=== PATIENT | male | born 1955 | race Caucasian/White ===

== ENCOUNTER 2016-10-23 09:06 | Emergency (ER) | payer OTHER, BC ==
[~2016-10-23] VITALS: Ht 185.4 cm; Wt 108.9 kg
[2016-10-23 09:07] VITALS: BP 157/96
[2016-10-23] MEDS ORDERED: ONGL1TAB9 PO (09:27)
[2016-10-23] MEDS ORDERED: LISI10TA4 PO (09:27)
[2016-10-23] MEDS ORDERED: FARXIGA PO (09:27)
[2016-10-23] MEDS ORDERED: METF500T4 PO (09:27)
[2016-10-23] MEDS ORDERED: GLIM2TAB PO (09:27)
[2016-10-23] MEDS ORDERED: SIMV20TA2 PO (09:27)
[2016-10-23] MEDS ORDERED: NAPR500T PO (09:44)
[2016-10-23] MEDS ORDERED: CYCL10TA PO (09:44)
== END 2016-10-23 10:09 | disposition home or self-care (01) ==
LOC: M ED 09:52
DX: S39.012A Strain of muscle, fascia and tendon of lower back, initial encounter (principal); X50.9XXA Other and unspecified overexertion or strenuous movements or postures, initial encounter; Y92.9 Unspecified place or not applicable; Y93.89 Activity, other specified; Y99.9 Unspecified external cause status; Z79.899 Other long term (current) drug therapy

== ENCOUNTER 2017-05-03 07:49 | Outpatient (CLI) | payer BC ==
[~2017-05-03] VITALS: Ht 182.9 cm; Wt 108.9 kg
[~2017-05-03 07:49] MED LIST: CYCL10TA PO; FARXIGA PO; GLIM2TAB PO; LISI10TA4 PO; METF500T4 PO; NAPR500T PO; ONGL1TAB9 PO; SIMV20TA2 PO
[2017-05-03] MEDS ORDERED: NS 1,000 ML IV ONE (08:00)
[2017-05-03] MEDS ORDERED: LIDOCAINE 2% INJ 100 MG/5 ML SDV (FOR ANES.) As Ordered ONE (09:20)
[2017-05-03] MEDS ORDERED: PROPOFOL 500 MG/50 ML VIAL As Ordered ONE (09:20)
--- NOTE | 2017-05-03 09:44 | ROOR ---
Patient Name: Brandon Kahn Procedure Date: 05/03/2017 9:22 AM Date of : 1955 Age: 61 Room: [facility] Gender: Male Note Status: Finalized Procedure: Total Colonoscopy to Cecum Indications: High risk colon cancer surveillance: Personal history of colonic polyps, Incidental - Change in bowel habits Providers: Donaldo Ortiz MD Referring MD: Theresa Cheung MD Requesting Provider: Medicines: Monitored Anesthesia Care Complications: No immediate complications. Procedure: Pre-Anesthesia Assessment: - The heart rate, respiratory rate, oxygen saturations, blood pressure, adequacy of pulmonary ventilation, and response to care were monitored throughout the procedure. The Colonoscope was introduced through the anus and advanced to the cecum, identified by appendiceal orifice and ileocecal valve. The colonoscopy was performed without difficulty. The patient tolerated the procedure well. The quality of the bowel preparation was excellent. Findings: The perianal and digital rectal examinations were normal. Non-bleeding internal hemorrhoids were found during retroflexion. The hemorrhoids were small and Grade I (internal hemorrhoids that do not prolapse). Scattered small-mouthed diverticula were found in the recto-sigmoid colon, sigmoid colon and descending colon. The exam was otherwise without abnormality on direct and retroflexion views. Impression: - Non-bleeding internal hemorrhoids. - Diverticulosis in the recto-sigmoid colon, in the sigmoid colon and in the descending colon. - The examination was otherwise normal on direct and retroflexion views. - No specimens collected. - The exam was otherwise normal to the cecum. Recommendation: - Patient has a contact number available for emergencies. The signs and symptoms of potential delayed complications were discussed with the patient. Return to normal activities tomorrow. Written discharge instructions were provided to the patient. - High fiber diet. - Discharge patient to home. - Continue present medications. - Repeat colonoscopy in 5 years for screening purposes. - Return to referring physician. - The findings and recommendations were discussed with the patient's family. Donaldo Ortiz MD Donaldo Ortiz MD 05/03/2017 9:44:16 AM This report has been signed electronically. Number of Addenda: 0 Note Initiated On: 05/03/2017 9:22 AM Estimated Blood Loss: Estimated blood loss: none.
[2017-05-03 10:07] VITALS: BP 130/86
== END 2017-05-03 10:15 | disposition home or self-care (01) ==
LOC: M OPP 07:49
PROVIDERS: ATTEND Internal Medicine Gastroenterology
DX: R19.7 Diarrhea, unspecified (principal); Z86.010 Personal history of colon polyps; K64.0 First degree hemorrhoids; K57.30 Diverticulosis of large intestine without perforation or abscess without bleeding; R19.4 Change in bowel habit; I10 Essential (primary) hypertension; E78.5 Hyperlipidemia, unspecified; E11.9 Type 2 diabetes mellitus without complications; Z79.84 Long term (current) use of oral hypoglycemic drugs; Z79.899 Other long term (current) drug therapy; Z83.71 Family history of colonic polyps

== ENCOUNTER → 2018-08-29 | Outpatient (REF) | payer OTHER ==
[~2018-08-29] MED LIST changes: +NAPR-50 PO; -NAPR500T PO
[2018-08-29 14:33] LABS: MALB URINE SIEMENS < 5.0 MG/L; MAU/CREAT RATIO 12.1 MCG/MG (0.0-30.0)
== END ==
LOC: M LAB REF 12:57
PROVIDERS: ATTEND Family Medicine
DX: E11.65 Type 2 diabetes mellitus with hyperglycemia (principal)

== ENCOUNTER 2024-12-28 09:50 | Day surgery (SDC) | payer MEDICARE, OTHER ==
[~2024-12-28] VITALS: Ht 185.4 cm; Wt 113.8 kg
[~2024-12-28 09:50] MED LIST changes: +BASA100I SQ; +CYCL-707 PO; -CYCL10TA PO; +DULA4.5P; -GLIM2TAB PO; +GLIM2TAB4 PO; +GLIM4TAB5 PO; +LISI10TA22 PO; -LISI10TA4 PO; +LISI20TA33 PO; +METF-838 PO; -METF500T4 PO; -NAPR-50 PO; +NAPR-837 PO; -SIMV20TA2 PO; +SIMV20TA22 PO; +TAMS1CAP17 PO
[2024-12-28] MEDS ORDERED: LIDOCAINE 2% 100MG/5ML SDV (FOR ANES.) As Ordered ONE (10:56)
[2024-12-28] MEDS ORDERED: propofoL 200 MG/20 ML VIAL As Ordered ONE (10:56)
[2024-12-28 11:02] VITALS: TEMP 96.9
[2024-12-28 11:35] VITALS: BP 129/89; O2SAT 98
== END 2024-12-28 11:40 | disposition home or self-care (01) ==
LOC: M OPP 09:50
PROVIDERS: ATTEND Surgery
DX: Z12.11 Encounter for screening for malignant neoplasm of colon (principal); K63.5 Polyp of colon; K57.30 Diverticulosis of large intestine without perforation or abscess without bleeding; K64.2 Third degree hemorrhoids; Z79.4 Long term (current) use of insulin; Z79.84 Long term (current) use of oral hypoglycemic drugs; Z79.85 Long-term (current) use of injectable non-insulin antidiabetic drugs; Z79.899 Other long term (current) drug therapy

== ENCOUNTER 2025-03-22 06:28 | Day surgery (SDC) | payer MEDICARE ==
[~2025-03-22] VITALS: Ht 182.9 cm; Wt 112.2 kg
[~2025-03-22 06:28] MED LIST changes: +PHENYLEPHRINE 10% OPHTH SOL 5ML OS PRN
[2025-03-22] MEDS: LIDOCAINE 3.5% 1 ML OPHTH TOPICAL GEL OU ONE (07:00)
[2025-03-22] MEDS: OFLOXACIN 0.3 % (OCUFLOX) OPTH SOL 5ML OS ONE (07:00)
[2025-03-22] MEDS ORDERED: MIDAZOLAM INJ 2 MG/2 ML VIAL As Ordered ONE (07:04)
[2025-03-22] MEDS: TROPICAMIDE 1% OPHTH SOLN 15ML OS SCH (07:05)
[2025-03-22] MEDS: PHENYLEPHRINE 2.5% OPHTH SOL 2ML OS SCH (07:05)
[2025-03-22] MEDS: CYCLOPENTOLATE 1% OPHTH SOLN 2 ML BTL OS SCH (07:05)
[2025-03-22] MEDS ORDERED: GLUCOSE 4 GM CHEW PO PRN (07:10)
[2025-03-22] MEDS ORDERED: GLUCAGON INJ 1 MG VIAL SC PRN (07:10)
[2025-03-22] MEDS ORDERED: DEXTROSE 50% 50 ML SYRINGE IV PRN (07:10)
[2025-03-22] MEDS: INSULIN LISPRO (NovoLOG) PER UNIT SC PRN (07:25)
[2025-03-22] MEDS: LIDOCAINE 1% SDV 5 ML VIAL As Ordered ONE (08:30)
[2025-03-22] MEDS: CEFUROXIME 1 MG/0.1 ML INTRACAMERAL INJ As Ordered ONE (08:33)
[2025-03-22] MEDS: BSS IRRIG/VANCO(10MG)/TOBRA(5MG)/EPINEPH(1:1000-0.5CC)500ML BAG-ORONLY As Ordered ONE (08:34)
[2025-03-22 08:45] VITALS: BP 137/98; TEMP 97.3; O2SAT 96
== END 2025-03-22 08:56 | disposition home or self-care (01) ==
LOC: M SDC 06:28
PROVIDERS: ATTEND Ophthalmology
DX: E11.36 Type 2 diabetes mellitus with diabetic cataract (principal); H25.12 Age-related nuclear cataract, left eye; I10 Essential (primary) hypertension; E78.00 Pure hypercholesterolemia, unspecified; Z79.899 Other long term (current) drug therapy; Z79.85 Long-term (current) use of injectable non-insulin antidiabetic drugs; Z79.84 Long term (current) use of oral hypoglycemic drugs; Z79.4 Long term (current) use of insulin; Z87.891 Personal history of nicotine dependence
CPT/HCPCS: 66984; J0697; J1815; J2250; J3010; V2632

== ENCOUNTER 2025-03-29 05:59 | Day surgery (SDC) | payer MEDICARE ==
[~2025-03-29] VITALS: Ht 182.9 cm; Wt 113.1 kg
[~2025-03-29 05:59] MED LIST changes: -PHENYLEPHRINE 10% OPHTH SOL 5ML OS PRN
[2025-03-29] MEDS: LIDOCAINE 3.5% 1 ML OPHTH TOPICAL GEL OU ONE (06:00)
[2025-03-29] MEDS ORDERED: PHENYLEPHRINE 10% OPHTH SOL 5ML OD PRN (06:00)
[2025-03-29] MEDS: OFLOXACIN 0.3 % (OCUFLOX) OPTH SOL 5ML OD ONE (06:00)
[2025-03-29] MEDS ORDERED: INSULIN LISPRO (NovoLOG) PER UNIT SC PRN (06:10)
[2025-03-29] MEDS ORDERED: LR 1,000 ML IV SCH (06:10)
[2025-03-29] MEDS ORDERED: LIDOCAINE 1% SDV 5 ML VIAL SC PRN (06:10)
[2025-03-29] MEDS ORDERED: MIDAZOLAM INJ 2 MG/2 ML VIAL As Ordered ONE (06:15)
[2025-03-29] MEDS: TROPICAMIDE 1% OPHTH SOLN 15ML OD SCH (06:32)
[2025-03-29] MEDS: CYCLOPENTOLATE 1% OPHTH SOLN 2 ML BTL OD SCH (06:32)
[2025-03-29] MEDS: PHENYLEPHRINE 2.5% OPHTH SOL 2ML OD SCH (06:32)
[2025-03-29] MEDS: LIDOCAINE 1% SDV 5 ML VIAL As Ordered ONE (07:40)
[2025-03-29] MEDS: BSS IRRIG/VANCO(10MG)/TOBRA(5MG)/EPINEPH(1:1000-0.5CC)500ML BAG-ORONLY As Ordered ONE (07:40)
[2025-03-29] MEDS: CEFUROXIME 1 MG/0.1 ML INTRACAMERAL INJ As Ordered ONE (07:40)
[2025-03-29 07:53] VITALS: BP 132/90; TEMP 97.2; O2SAT 95
== END 2025-03-29 08:05 | disposition home or self-care (01) ==
LOC: M SDC 05:59
PROVIDERS: ATTEND Ophthalmology
DX: H25.11 Age-related nuclear cataract, right eye (principal); E11.36 Type 2 diabetes mellitus with diabetic cataract; I10 Essential (primary) hypertension; E78.00 Pure hypercholesterolemia, unspecified; Z79.899 Other long term (current) drug therapy; Z79.84 Long term (current) use of oral hypoglycemic drugs; Z79.4 Long term (current) use of insulin; Z79.85 Long-term (current) use of injectable non-insulin antidiabetic drugs; Z87.891 Personal history of nicotine dependence
CPT/HCPCS: 66984; J0697; J2250; J3010; V2632